=== PATIENT | female | born 1995 | race African-American/Black ===

== ENCOUNTER 2022-01-24 17:09 | Emergency (ER) | payer SELFPAY ==
[~2022-01-24] VITALS: Ht 157.5 cm; Wt 77.1 kg
[2022-01-24] MEDS ORDERED: CEFTRIAXONE 1 GM VIAL IM ONE (17:30)
[2022-01-24] MEDS ORDERED: ONDANSETRON HCL 4 MG ORAL DISINTEGRATING TAB PO ONE (17:30)
[2022-01-24] MEDS ORDERED: METRONIDAZOLE 500 MG TAB PO ONE (17:30)
[2022-01-24] MEDS ORDERED: LIDOCAINE HCL 1% LOCAL INJ 20 ML VIAL INJ ONE (17:45)
[2022-01-24] MEDS ORDERED: DOXYCYCLINE HY100 MG PO (17:58)
[2022-01-24] MEDS ORDERED: CLEOCIN HCL300 MG PO (17:59)
[2022-01-24] MEDS ORDERED: LIDOCAINE 1% W/EPINEPHRINE 20 ML VIAL ONE (18:00)
[2022-01-24] MEDS ORDERED: DIFLUCAN100 MG PO (18:35)
[2022-01-24 19:03] LABS: CLARITY,URINE SL CLOUDY (CLEAR); COLOR,URINE YELLOW (YELLOW); LEUKOCYTE ESTERASE ,URINE SMALL (NEGATIVE); NITRITE,URINE POSITIVE (NEGATIVE); PROTEIN,URINE DIPSTICK NEGATIVE (NEGATIVE)
[2022-01-24 19:04] LABS: KETONES,URINE NEGATIVE (NEGATIVE); URINE UROBILINOGEN 1 mg/dL (0.2 - 1)
[2022-01-24 19:10] LABS: BACTERIA,URINE MANY /HPF
[2022-01-24 19:11] LABS: EPITHELIAL CELLS,URINE RARE /LPF
[2022-01-25] MEDS ORDERED: AZO STANDARD95 MG PO (01:10)
== END 2022-01-24 19:30 | disposition home or self-care (01) ==
LOC: ER 17:20
DX: N89.8 Other specified noninflammatory disorders of vagina (principal); S39.94XA Unspecified injury of external genitals, initial encounter
CPT/HCPCS: 81001; 81025; 87491; 87591; 99283; J0696; J2001; Q0162

== ENCOUNTER 2022-01-25 00:57 | Emergency (ER) | payer SELFPAY ==
[~2022-01-25] VITALS: Ht 157.5 cm; Wt 77.1 kg
[~2022-01-25 00:57] MED LIST: CLEOCIN HCL300 MG PO; DIFLUCAN100 MG PO; DOXYCYCLINE HY100 MG PO
[2022-01-25] MEDS ORDERED: AZO STANDARD95 MG PO (01:10)
== END 2022-01-25 01:18 | disposition home or self-care (01) ==
LOC: ER 01:06
DX: R30.0 Dysuria (principal)
CPT/HCPCS: 99282

== ENCOUNTER 2022-03-05 16:46 | Emergency (ER) | payer SELFPAY ==
[~2022-03-05] VITALS: Ht 157.5 cm; Wt 77.1 kg
[~2022-03-05 16:46] MED LIST changes: +AZO STANDARD95 MG PO
[2022-03-05 17:51] LABS: CLARITY,URINE HAZY (CLEAR); COLOR,URINE YELLOW (YELLOW); KETONES,URINE NEGATIVE (NEGATIVE); LEUKOCYTE ESTERASE ,URINE MODERATE (NEGATIVE); NITRITE,URINE NEGATIVE (NEGATIVE); PROTEIN,URINE DIPSTICK NEGATIVE (NEGATIVE); URINE UROBILINOGEN 0.2 mg/dL (0.2 - 1)
[2022-03-05 18:01] LABS: RBC,URINE 0-5 /HPF (0-5)
[2022-03-05 18:02] LABS: BACTERIA,URINE MODERATE /HPF; EPITHELIAL CELLS,URINE MODERATE /LPF
[2022-03-05 19:09] VITALS: BP 121/60
== END 2022-03-05 19:14 | disposition home or self-care (01) ==
LOC: ER 17:02
DX: R30.0 Dysuria (principal); N39.0 Urinary tract infection, site not specified; N76.0 Acute vaginitis; S39.012A Strain of muscle, fascia and tendon of lower back, initial encounter; Y04.0XXA Assault by unarmed brawl or fight, initial encounter; Y92.091 Bathroom in other non-institutional residence as the place of occurrence of the external cause
CPT/HCPCS: 81001; 81025; 99283